=== PATIENT | female | born 1995 | race Caucasian/White ===

== ENCOUNTER 2024-03-07 19:13 | Emergency (ER) | payer BC, SELFPAY ==
[2024-03-07] MEDS ORDERED: ONDANSETRON 4 MG/2 ML VIAL ONE (20:11)
[2024-03-07] MEDS ORDERED: NA CHLORIDE 0.9% 1,000 ML ONE (20:12)
[2024-03-07] MEDS ORDERED: FAMOTIDINE 20 MG/2 ML VIAL IV ONE (20:12)
[2024-03-07 20:48] LABS: Sqamous Epithelial <5 /HPF (None Seen); Urine Bacteria None Seen /HPF (<20); Urine Bilirubin NEGATIVE (Negative); Urine Blood 1+ (Negative); Urine Clarity Turbid (Clear); Urine Color Yellow (Yellow); Urine Crystals Unidentified Few /HPF (None Seen); Urine Culture Reflex Order NOT NEEDED; Urine Glucose NEGATIVE (Negative); Urine Ketones NEGATIVE (Negative); Urine Microscopic Reflex YN ORDER UMIC; Urine Mucus 4+ /HPF (None Seen); Urine Nitrite NEGATIVE (Negative); Urine Protein NEGATIVE (Negative); Urine Urobilinogen Normal (Normal); Urine WBC <5 /HPF (<5); Urine pH 6.5 (5.0-7.0)
[2024-03-07 21:03] LABS: Albumin 3.6 g/dL (3.4-5.0); Anion Gap 7.8 mEq/L (5.0-15.0); Bilirubin Total 0.3 mg/dL (0.2-1.0); Globulin 3.6 g/dL (2.3-3.5); Protein, Total 7.2 g/dL (6.4-8.2)
[2024-03-07 21:04] LABS: Potassium 3.8 mEq/L (3.5-5.1)
[2024-03-07 21:05] LABS: Absolute Basophils 0.1 K/uL (0-0.5); Absolute Eosinophils 0.2 K/uL (0-0.5); Absolute Lymphocytes (CBC) 2.6 K/uL (0.7-4.9); Absolute Monocytes 0.4 K/uL (0.1-1.3); Absolute Neutrophil 3.2 K/uL (1.8-8.0); Basophils % 1.9 % (0-1.3); Eosinophils % 2.6 % (0-4.4); Hematocrit 34.5 % (36.0-45.0); Hemoglobin 11.4 g/dL (12.0-15.0); Lymphocytes % 40.2 % (15.3-44.8); MCH 25.5 pg (27.0-35.0); MCV 77.1 fL (80-100); MPV 9.3 fL (7.6-11.3); Monocytes % 6.3 % (3.3-12.3); Nucleated Red Blood Cells % 0.1 % (0-0); Platelets 196 thou/uL (152-406); RBC Red Blood Cell Count 4.48 M/uL (3.86-4.86); Red Cell Distribution Width 18.6 % (12.1-15.2)
--- NOTE | 2024-03-07 21:42 | EDPHYS ---
Physician Documentation [facility] Name: Santa Guerin Age: 28 yrs Sex: Female : 1995 Arrival Date: 03/07/2024 Time: 19:13 Bed 2 Private MD: ED Physician Simin Wynn HPI: 03/07 21:40 This 28 yrs old Female presents to ER via Ambulatory with complaints of Vomiting. kb 21:40 Patient is a 28-year-old female who presents for vomiting that started 2 months ago but kb is worse in the mornings and at night. Reports diarrhea over the last 2 days. Denies fever, abdominal pain. No aggravating or alleviating factors.. 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 - Infectious Disease History:: Denies. - Social history:: Smoking status: Reported history of juuling and/or vaping. Patient uses THC A. ROS: 21:38 Constitutional: As per HPI kb Exam: 21:38 Constitutional: This is a well developed, well nourished patient who is awake, alert, kb and in no acute distress. Head/Face: Normocephalic, atraumatic. ENT: Moist Mucous membranes Cardiovascular: Regular rate Respiratory: Respirations even and unlabored. No increased work of breathing. Talking in full sentences Abdomen/GI: Soft, non-tender. No distention Skin: Warm, dry with normal turgor. Normal color. MS/ Extremity: Pulses equal, no cyanosis. Neurovascular intact. Full, normal range of motion. Neuro: Awake and alert, GCS 15, oriented to person, place, time, and situation. Vital Signs: 19:47 BP 115 / 77; Pulse 63; Resp 17; Temp 98.7; Pulse Ox 99% on R/A; MAP 88 mmHg; Weight tm6 61.23 kg; Height 5 ft. 1 in. ; Pain 0/10; 20:30 BP 112 / 74; Pulse 65; Resp 16; Pulse Ox 100% ; dd2 21:40 BP 114 / 76; Pulse 68; Resp 15; Temp 98.4; Pulse Ox 100% ; dd2 19:47 Body Mass Index 25.51 (61.23 kg, 154.94 cm) tm6 19:47 Pain Scale: Adult tm6 MDM: 19:17 Medical Screening Exam initiated kb 21:39 Differential diagnosis: Nonspecific abd pain, gastritis, GERD. Data reviewed: vital kb signs, nurses notes. Test considered but Not performed: CT: ct considered but pt is nontoxic in appearance, afebrile, abd nontender, labs reassuring. Pt educated to follow up with GI for continued symptoms and further evaluation. . Historians other than the Patient: Spouse/Significant Other: . 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 03/07 19:46 Order name: CBC with Diff; Complete Time: 21:08 kb 03/07 19:46 Order name: CMP; Complete Time: 21:04 kb 03/07 19:46 Order name: Lipase; Complete Time: 21:04 kb 03/07 19:46 Order name: Test, Urine; Complete Time: 20:53 kb 03/07 19:46 Order name: Urinalysis w/ reflexes; Complete Time: 20:53 kb 03/07 19:46 Order name: IV Saline Lock; Complete Time: 20:53 kb 03/07 19:46 Order name: Labs collected and sent; Complete Time: 20:53 kb 03/07 21:09 Order name: PO challenge; Complete Time: 21:13 kb Administered Medications: 20:42 Drug: Ondansetron IVP 4 mg IVP once; over 2 minutes Route: IVP; Site: left forearm; ha1 20:57 Follow up: Response: No adverse reaction dd2 20:45 Drug: NS 0.9% IV 1000 ml IV at 1 bolus Per protocol; to be given as a bolus over 60 ha1 minutes Route: IV; Rate: 1 bolus; Site: left forearm; 21:00 Follow up: Response: No adverse reaction dd2 21:45 Follow up: IV Status: Completed infusion; IV Intake: 1000ml dd2 20:53 Drug: Famotidine IVP 20 mg IVP once; dilute with 10 mL 0.9% NaCl; give over 2 minutes ha1 Route: IVP; Site: right antecubital; 21:08 Follow up: Response: No adverse reaction dd2 Disposition Summary: 03/07/24 21:41 Discharge Ordered Notes: Location: Home kb Condition: Stable kb Diagnosis - Nausea with vomiting, unspecified kb Followup: kb - With: Emergency Department - When: As needed - Reason: Worsening of condition Followup: kb - With: Private Physician - When: 2 - 3 days - Reason: Recheck today's complaints, Continuance of care, Re-evaluation by your physician Discharge Instructions: - Discharge Summary Sheet kb - Nausea and Vomiting, Adult, [id number] kb Forms: - Medication Reconciliation Form kb - Antibiotic Education kb - Prescription Opioid Use kb - Patient Portal Instructions kb - Leadership Thank You Letter kb Prescriptions: - Protonix 40 mg Oral Tablet - take 1 tablet ORAL route once daily; 30 tablet; Refills: 0, Product Selection kb Permitted - Zofran 4 mg Oral tablet - take 1 tablet ORAL route every 6 hours As needed; 12 tablet; Refills: 0, kb Product Selection Permitted Signatures: Dispatcher [employer] Lotus Cheney, LEONID BEAULIEUP-Zulema Souza RN RN ha1 Navarro Gary RN RN tm6 JUAN F MARIE RN dd2
--- NOTE | 2024-03-07 21:42 | ER ---
[facility] Age: 28 yrs Sex: Female : 1995 Arrival Date: 03/07/2024 Time: 19:13 Bed 2 Private MD: Diagnosis: Nausea with vomiting, unspecified Presentation: 03/07 19:49 Chief complaint: Patient states: vomiting x2 months, worse in the mornings and tm6 evenings. Diarrhea x2 days. Coronavirus screen: Client denies travel out of the [place] in the last 14 days. Ebola Screen: Patient negative for fever greater than or equal to 101.5 degrees Fahrenheit, and additional compatible Ebola Virus Disease symptoms Patient denies exposure to infectious person. Patient denies travel to an Ebola-affected area in the 21 days before illness onset. No symptoms or risks identified at this time. Initial Sepsis Screen: Does the patient meet any 2 criteria? No. Patient's initial sepsis screen is negative. Does the patient have a suspected source of infection? No. Patient's initial sepsis screen is negative. Risk Assessment: Do you want to hurt yourself or someone else? Patient reports no desire to harm self or others. Onset of symptoms was January 13, 2024. 19:49 Method Of Arrival: Ambulatory tm6 19:49 Acuity: LEO 3 tm6 Triage Assessment: 19:49 General: Appears in no apparent distress. Behavior is calm, cooperative. Pain: Denies tm6 pain. EENT: No signs and/or symptoms were reported regarding the EENT system. Neuro: Level of Consciousness is awake, alert, obeys commands, Oriented to person, place, time, situation. Cardiovascular: Patient's skin is warm and dry. Respiratory: Airway is patent Respiratory effort is even, unlabored, Respiratory pattern is regular, symmetrical. GI: Abdomen is flat, non-distended, Reports diarrhea, nausea, vomiting. : No signs and/or symptoms were reported regarding the genitourinary system. Derm: No signs and/or symptoms reported regarding the dermatologic system. Musculoskeletal: No signs and/or symptoms reported regarding the musculoskeletal system. 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 - Infectious Disease History:: Denies. - Social history:: Smoking status: Reported history of juuling and/or vaping. Patient uses THC A. Screenin:14 [facility] ED Fall Risk Assessment (Adult) History of falling in the last 3 months, ha1 including since admission No falls in past 3 months (0 pts) Confusion or Disorientation No (0 pts) Intoxicated or Sedated No (0 pts) Impaired Gait No (0 pts) Mobility Assist Device Used No (0 pt) Altered Elimination No (0 pt) Score/Fall Risk Level 0 - 2 = Low Risk Oriented to surroundings, Maintained a safe environment, Educated pt \T\ family on fall prevention, incl call for assistance when getting out of bed, Hourly rounding (assess needs \T\ fall precautionary measures) done. Abuse screen: Denies threats or abuse. Denies injuries from another. Nutritional screening: No deficits noted. Tuberculosis screening: No symptoms or risk factors identified. Assessment: 20:13 General: Appears uncomfortable, Behavior is calm, cooperative. Pain: Complains of pain ha1 in abdomen Pain does not radiate. Pain currently is 5 out of 10 on a pain scale. Quality of pain is described as aching. Neuro: Level of Consciousness is awake, alert, obeys commands, Oriented to person, place, time, situation. Cardiovascular: Capillary refill < 3 seconds Patient's skin is warm and dry. Respiratory: Airway is patent Respiratory effort is even, unlabored, Respiratory pattern is regular, symmetrical. GI: Abdomen is round non-distended, Reports nausea, vomiting. : No signs and/or symptoms were reported regarding the genitourinary system. Derm: Skin is pink, warm \T\ dry. Musculoskeletal: Circulation, motion, and sensation intact. Range of motion: intact in all extremities. 21:15 Reassessment: Patient and/or family updated on plan of care and expected duration. Pain ha1 level reassessed. Patient is alert, oriented x 3, equal unlabored respirations, skin warm/dry/pink. Patient states feeling better. Patient states symptoms have improved. Vital Signs: 19:47 BP 115 / 77; Pulse 63; Resp 17; Temp 98.7; Pulse Ox 99% on R/A; MAP 88 mmHg; Weight tm6 61.23 kg; Height 5 ft. 1 in. ; Pain 0/10; 20:30 BP 112 / 74; Pulse 65; Resp 16; Pulse Ox 100% ; dd2 21:40 BP 114 / 76; Pulse 68; Resp 15; Temp 98.4; Pulse Ox 100% ; dd2 19:47 Body Mass Index 25.51 (61.23 kg, 154.94 cm) tm6 19:47 Pain Scale: Adult tm6 ED Course: 19:15 Patient arrived in ED. al6 19:16 Lotus Mesa [facility]-C [facility]. kb 19:16 Simin Wynn MD is Attending Physician. kb 19:49 Arm band placed on right wrist. tm6 19:50 Triage completed. tm6 19:50 Patient has correct armband on for positive identification. Bed in low position. Call ha1 light in reach. Side rails up X 1. Adult w/ patient. 20:15 Provided Education on: plan of care . ha1 20:30 Inserted saline lock: 20 gauge in left forearm, using aseptic technique. Blood ha1 collected. Flushed with 10 mL NS. 20:34 Test, Urine Sent. vk 20:34 Urinalysis w/ reflexes Sent. vk 20:34 Missed attempt(s): 20 gauge in left forearm. vk 20:53 CBC with Diff Sent. ha1 20:53 CMP Sent. ha1 20:53 Lipase Sent. ha1 21:56 JUAN F MARIE, RN is Primary Nurse. dd2 22:03 No provider procedures requiring assistance completed. IV discontinued, intact, dd2 bleeding controlled, No redness/swelling at site. Pressure dressing applied. Administered Medications: 20:42 Drug: Ondansetron IVP 4 mg IVP once; over 2 minutes Route: IVP; Site: left forearm; ha1 20:57 Follow up: Response: No adverse reaction dd2 20:45 Drug: NS 0.9% IV 1000 ml IV at 1 bolus Per protocol; to be given as a bolus over 60 ha1 minutes Route: IV; Rate: 1 bolus; Site: left forearm; 21:00 Follow up: Response: No adverse reaction dd2 21:45 Follow up: IV Status: Completed infusion; IV Intake: 1000ml dd2 20:53 Drug: Famotidine IVP 20 mg IVP once; dilute with 10 mL 0.9% NaCl; give over 2 minutes ha1 Route: IVP; Site: right antecubital; 21:08 Follow up: Response: No adverse reaction dd2 Medication: 20:15 VIS not applicable for this client. ha1 Intake: 21:45 IV: 1000ml; Total: 1000ml. dd2 Outcome: 21:41 Discharge ordered by MD. rivera 22:03 Discharged to home ambulatory, dd2 22:03 Condition: improved 22:03 Discharge instructions given to patient, family, Instructed on discharge instructions, follow up and referral plans. medication usage, Demonstrated understanding of instructions, follow-up care, medications, Prescriptions given X 2, 22:04 Patient left the ED. dd2 Signatures: Lotus Mesa, JOSEC PINA-Zulema Souza, RN RN ha1 Navarro Gary RN RN tm6 Estrella Blue DIANA, RN RN dd2 Trinity Oro6
[2024-03-07 22:43] VITALS: O2SAT 100
[2024-03-07 22:45] VITALS: BP 114/76; TEMP 98.4
== END 2024-03-07 22:04 | disposition home or self-care (01) ==
LOC: ER 19:13
DX: R11.2 Nausea with vomiting, unspecified (principal)
CPT/HCPCS: 85025; 81001; 36415; 81025; 83690; 80053; 99284; J2405; J7030

== ENCOUNTER 2024-06-22 21:39 | Emergency (ER) | payer BC ==
--- OUTSIDE RECORDS SUMMARY | 2024-06-22 21:42 | XMS REPORT | Continuity of Care Document ---
Author Name Unknown Address [address] [place] [address] [facility] Address [address] [place] [address] Care Team Providers Care Newspaper Inserter Name Role Phone Elsa Chavis Primary Care Physician Medications Ordered Medication Name Filled Medication Name Start Date Stop Date Current Medication? Ordering Clinician Indication Dosage Frequency Signature (SIG) Comments Components Source TAKE 1 TABLET BY MOUTH ONCE DAILY IN THE MORNING 2022-02 0-05 00:00: 00 Yes Edouard Valdivia TAKE 1 TABLET BY MOUTH ONCE DAILY IN THE MORNING FOR 7 DAYS, IF NO SIDE EFFECTS INCREASE TO 2 TABLETS ONCE DAILY IN THE MORNING 6-29 00:00: 00 Yes Edouard Valdivia BUPROPION HCL 75 MG TABS 5-31 00:00: 00 Yes 75 Edouard Valdivia APPLY THIN FILM TO AFFECTED AREA 3 TIMES DAILY FOR 7 TO 10 DAYS. 4-12 00:00: 00 05-29 00:00 :00 No 2 Edouard Valdivia Vital Signs Vital Name Observation Time Observation Value Comments Louise vasques Weight Measured 2024-06-08 13:47:00 145.20 pounds Edouard Valdivia Height Measured 2024-06-08 13:47:00 62.00 inches Edouard Jarrett Valdivia Body Temperature 2024-06-08 13:47:00 98.30 degrees Edouard Jarrett Valdivia Heart Rate 2024-06-08 13:47:00 57.00 /min Maryam nacho Valdivia Respiratory Rate 2024-06-08 13:47:00 18.00 /min Edouard Jarrett Valdivia BP Systolic 2024-06-08 13:47:00 107 mm[Hg] Step hen F Skip BP Diastolic 2024-06-08 13:47:00 74 mm[Hg] Xander phen F Skip BP Systolic 2022-06-09 16:31:00 122 mm[Hg] Step hen F Skip BP Diastolic 2022-06-09 16:31:00 71 mm[Hg] Xander phen F Skip Weight Measured 2022-06-09 16:31:00 149.60 pounds Edouard F Skip Height Measured 2022-06-09 16:31:00 62.00 inches Edouard F Skip Body Temperature 2022-06-09 16:31:00 98.30 degrees Edouard F Skip Heart Rate 2022-06-09 16:31:00 81.00 /min Maryam en F Skip Respiratory Rate 2022-06-09 16:31:00 18.00 /min Edouard F Skip BP Systolic 2022-06-09 16:21:00 Step hen F Skip BP Diastolic 2022-06-09 16:21:00 Xander phen F Skip Weight Measured 2022-06-09 16:21:00 Edouard F Skip Height Measured 2022-06-09 16:21:00 Edouard F Skip Body Temperature 2022-06-09 16:21:00 Edouard F Skip Heart Rate 2022-06-09 16:21:00 Maryam en F Skip Respiratory Rate 2022-06-09 16:21:00 Edouard F Skip BP Systolic 2022-02-01 13:58:00 110 mm[Hg] Step hen F Skip BP Diastolic 2022-02-01 13:58:00 81 mm[Hg] Xander phen F Skip Weight Measured 2022-02-01 13:58:00 157.00 pounds Edouard F Skip Height Measured 2022-02-01 13:58:00 62.00 inches Edouard F Skip Body Temperature 2022-02-01 13:58:00 98.30 degrees Edouard F Skip Heart Rate 2022-02-01 13:58:00 85.00 /min Maryam en F Skip Respiratory Rate 2022-02-01 13:58:00 18.00 /min Edouard F Skip BP Systolic 2022-01-25 13:37:00 103 mm[Hg] Step hen F Skip BP Diastolic 2022-01-25 13:37:00 70 mm[Hg] Xander phen F Skip Weight Measured 2022-01-25 13:37:00 153.20 pounds Edouard Valdivia Height Measured 2022-01-25 13:37:00 62.00 inches Edouard Valdivia Body Temperature 2022-01-25 13:37:00 98.30 degrees Edouard Valdivia Heart Rate 2022-01-25 13:37:00 86.00 /min Maryam en F Skip Respiratory Rate 2022-01-25 13:37:00 18.00 /min Edouard Valdivia BP Systolic 2022-01-11 10:38:00 117 mm[Hg] Step hen F Skip BP Diastolic 2022-01-11 10:38:00 81 mm[Hg] Xander phen F Skip Weight Measured 2022-01-11 10:38:00 152.40 pounds Edouard Valdivia Height Measured 2022-01-11 10:38:00 62.00 inches Edouard Valdivia Body Temperature 2022-01-11 10:38:00 98.10 degrees Edouard Valdivia Heart Rate 2022-01-11 10:38:00 90.00 /min Maryam en F Skip Respiratory Rate 2022-01-11 10:38:00 18.00 /min Edouard Valdivia Encounters Start Date/Time End Date/Time Encounter Type Admission Type Attending [facility] Care Department Encounter ID Source 2024-06-08 13:40:31 2024-06-08 13:40:31 Outpatient [facility] [id number] Edouard Valdivia 2024-06-08 00:00:00 2024-06-08 00:00:00 Outpatient Visit [facility] [id number] Edouard Valdivia 2024-06-08 00:00:00 2024-06-08 00:00:00 Outpatient Visit [facility] [id number] Edouard Valdivia 2022-06-15 11:19:31 2022-06-15 11:19:31 Outpatient [facility] [id number] Edouard Valdivia 2022-06-09 16:16:28 2022-06-09 16:16:28 Outpatient [facility] [id number] Edouard Valdivia 2022-01-25 14:31:27 2022-01-25 14:31:27 Outpatient [facility] [id number] Edouard Valdivia 2022-01-11 10:28:21 2022-01-11 10:28:21 Outpatient [facility] [id number] Edouard Valdivia Notes Date/Time Note Provider Source Edouard Valdivia [facility]
[2024-06-22] MEDS ORDERED: NA CHLORIDE 0.9% 1,000 ML ONE (22:22)
[2024-06-22] MEDS ORDERED: DIPHENHYDRAMINE 50 MG/ML VIAL ONE (22:22)
[2024-06-22 22:39] LABS: Specific Gravity 1.006 (1.005-1.030); Urine Bilirubin NEGATIVE (Negative); Urine Blood Negative (Negative); Urine Clarity Clear (Clear); Urine Color Colorless (Yellow); Urine Glucose NEGATIVE (Negative); Urine Ketones NEGATIVE (Negative); Urine Microscopic Reflex YN NO UMIC; Urine Nitrite NEGATIVE (Negative); Urine Protein NEGATIVE (Negative); Urine Urobilinogen Normal (Normal)
[2024-06-22 22:50] LABS: Absolute Basophils 0.1 K/uL (0-0.5); Absolute Eosinophils 0.1 K/uL (0-0.5); Absolute Lymphocytes (CBC) 2.1 K/uL (0.7-4.9); Absolute Monocytes 0.7 K/uL (0.1-1.3); Absolute Neutrophil 6.2 K/uL (1.8-8.0); Basophils % 0.6 % (0-1.3); Eosinophils % 0.8 % (0-4.4); Hematocrit 34.3 % (36.0-45.0); Hemoglobin 11.9 g/dL (12.0-15.0); Lymphocytes % 23.2 % (15.3-44.8); MCH 26.6 pg (27.0-35.0); MCHC 34.7 g/dL (32.0-36.0); MCV 76.5 fL (80-100); MPV 9.4 fL (7.6-11.3); Monocytes % 7.9 % (3.3-12.3); Neutrophils % 67.5 % (41.7-73.7); Platelets 178 thou/uL (152-406); RBC Red Blood Cell Count 4.48 M/uL (3.86-4.86); Red Cell Distribution Width 18.5 % (12.1-15.2)
[2024-06-22 22:59] LABS: ALT/SGPT 29 U/L (13-56); Albumin 3.9 g/dL (3.4-5.0); Albumin/Globulin Ratio 1.1 (1.1-1.8); Alkaline Phosphatase 45 U/L (45-117); Anion Gap 9.5 mEq/L (5.0-15.0); BUN Blood Urea Nitrogen 8 mg/dL (7-18); Bicarbonate 22 mEq/L (21-32); Bilirubin Total 0.4 mg/dL (0.2-1.0); Globulin 3.7 g/dL (2.3-3.5); Glomerular Filtration Rate 120 ml/min (=/>90); Glucose Level 98 mg/dL (74-106); Potassium 3.5 mEq/L (3.5-5.1); Protein, Total 7.6 g/dL (6.4-8.2); Sodium Level 135 mEq/L (136-145)
[2024-06-22 23:00] LABS: AST/SGOT < 10 U/L (15-37)
[2024-06-22 23:10] LABS: HCG, Quantitative 52202 mIU/mL (1-3)
--- NOTE | 2024-06-22 23:54 | RAD REPORT ---
EXAMINATION: US Transvaginal OB COMPARISON: None. HISTORY: [facility] MAIN ABD CRAMPING, Bed Name: IW1 TECHNIQUE: Real-time ultrasound was performed through the pelvis. A transvaginal scan was performed t o better visualize the intrauterine contents and adnexa. FINDINGS: There is a single living intrauterine . Small crescentic subchorionic hemorrhage just above the decidua, measuring 7 x 5 x 6 mm. Both ovaries are visualized and appear unremarkable. There is no free fluid in the cul-de-sac. Measurements and Calculations: Crouse rump length 7.4 millimeter, consistent with a sonographic age of 6 weeks, 4 days. The patient' s LMP date is not stated. heart rate: 122 BPM IMPRESSION: Single living intrauterine , with a composite sonographic age of 6 weeks, 4 days based on cr own-rump length. Incidentally noted small subchorionic hemorrhage measuring up to 7 mm. Close clinical follow-up, and consideration of short-term sonographic follow-up in 7-10 days are recommended.
--- NOTE | 2024-06-23 00:02 | EDPHYS ---
Physician Documentation [facility] Name: Santa Guerin Age: 29 yrs Sex: Female : 1995 Arrival Date: 06/22/2024 Time: 21:39 Bed 12 Private MD: ED Physician Mauricio Light HPI: 06/23 01:41 This 29 yrs old Female presents to ER via Ambulatory with complaints of 6 dr5 weeks , dehydration. 01:41 Onset: The symptoms/episode began/occurred acutely. Patient is a 29-year-old female is dr5 approximately 6 weeks coming in with nausea and vomiting this been going on all day. Patient reports that she is able to keep food down for a while, but then throws up later. Patient has Zofran that OB prescribed that is not helping.. 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 - Infectious Disease History:: Denies. - Social history:: Smoking status: Reported history of juuling and/or vaping. ROS: 06/23 01:41 Constitutional: as per hpi dr5 Exam: 01:41 Constitutional: This is a well developed, well nourished patient who is awake, alert, dr5 and in no acute distress. Head/Face: Normocephalic, atraumatic. Eyes: Pupils equal round and reactive to light, extra-ocular motions intact. Lids and lashes normal. Conjunctiva and sclera are non-icteric and not injected. Cornea within normal limits. Periorbital areas with no swelling, redness, or edema. Neck: Trachea midline, no thyromegaly or masses palpated, and no cervical lymphadenopathy. Supple, full range of motion without nuchal rigidity, or vertebral point tenderness. No Meningismus. Chest/axilla: Normal chest wall appearance and motion. Nontender with no deformity. No lesions are appreciated. Cardiovascular: Regular rate and rhythm with a normal S1 and S2. Normal PMI, no JVD. No pulse deficits. Respiratory: Lungs have equal breath sounds bilaterally, clear to auscultation. No rales, rhonchi or wheezes noted. No increased work of breathing, no retractions or nasal flaring. Back: No spinal tenderness. No costovertebral tenderness. Full range of motion. Skin: Warm, dry with normal turgor. Normal color with no rashes, no lesions, and no evidence of cellulitis. MS/ Extremity: Pulses equal, no cyanosis. Neurovascular intact. Full, normal range of motion. Neuro: Awake and alert, GCS 15, oriented to person, place, time, and situation. Cranial nerves II-XII grossly intact. Motor strength 5/5 in all extremities. Sensory grossly intact. Cerebellar exam normal. Normal gait. Vital Signs: 06/22 22:14 BP 116 / 77; Pulse 61; Resp 16; Temp 98.4; Pulse Ox 100% on R/A; Weight 65.32 kg; dd2 Height 5 ft. 1 in. ; 06/23 00:11 BP 113 / 72; Pulse 64; Resp 16; Temp 98.2; Pulse Ox 100% on R/A; dd2 06/22 22:14 Body Mass Index 27.21 (65.32 kg, 154.94 cm) dd2 [place] Coma Score: 06/22 22:45 Eye Response: spontaneous(4). Motor Response: obeys commands(6). Verbal Response: dd2 oriented(5). Total: 15. MDM: 22:04 Medical Screening Exam initiated dr5 06/23 01:41 Differential diagnosis: viral Infection, hyperemesis gravidarum, dehydration, dr5 subchorionic hemorrhage. Data reviewed: vital signs, nurses notes, lab test result(s), radiologic studies, ultrasound. I considered the following discharge prescriptions or medication management in the emergency department Medications were administered in the Emergency Department. See MAR. Historians other than the Patient: Spouse/Significant Other: Significant other. Care significantly affected by the following Social Determinants of Health: Poor access to healthcare and/or lack of insurance, Poor access to transportation, Problems related to employment. Counseling: I had a detailed discussion with the patient and/or guardian regarding the historical points, exam findings, and any diagnostic results supporting the discharge/admit diagnosis, the presence of at least one elevated blood pressure reading (>120/80) during this emergency department visit, lab results, radiology results, the need for outpatient follow up, for definitive care, a family practitioner, an OB/Gyne specialist, to return to the emergency department if symptoms worsen or persist or if there are any questions or concerns that arise at home. Medication response: Benadryl. Response to treatment: the patient's symptoms have resolved after treatment. ED course: Patient was given IV as well as normal saline for hydration. All labs and ultrasound discussed with patient and . P.o. challenge passed and patient is feeling much better. Recommended patient keep appoint with OB this next week. Discussed subchorionic hemorrhage with close follow-up.. 06/22 21:43 Order name: CBC with Diff; Complete Time: 23:00 dr5 06/22 21:43 Order name: CMP; Complete Time: 23:19 [facility] 06/22 21:43 Order name: Urinalysis w/ reflexes; Complete Time: 22:42 [facility] 06/22 21:43 Order name: HCG-Quantitative; Complete Time: 23:19 [facility] 06/22 22:20 Order name: US Transvaginal Ob; Complete Time: 23:56 dd2 Administered Medications: 06/22 22:32 Drug: NS 0.9% IV 1000 ml IV at 1000 ml once; to be given as a bolus over 60 minutes dd2 Route: IV; Rate: 1000 ml; Site: left forearm; 23:30 Follow up: IV Status: Completed infusion; IV Intake: 1000ml dd2 22:32 Drug: diphenhydrAMINE IVP 12.5 mg IVP once Route: IVP; Site: left forearm; dd2 22:47 Follow up: Response: No adverse reaction dd2 Disposition: 06/23 02:36 I was immediately available on-site in the Emergency Department for consultation in the ms3 care of the patient. Disposition Summary: 06/23/24 00:01 Discharge Ordered Notes: Location: Home dr5 Condition: Stable dr5 Diagnosis - Nausea with vomiting, unspecified dr5 Followup: dr5 - With: Emergency Department - When: As needed - Reason: Worsening of condition Followup: dr5 - With: Private Physician - When: 7 - 10 days - Reason: Recheck today's complaints, Continuance of care, Re-evaluation by your physician Discharge Instructions: - Discharge Summary Sheet dr5 - Nausea and Vomiting, Adult dr5 - Subchorionic Hematoma dr5 Forms: - Medication Reconciliation Form dr5 - Patient Portal Instructions dr5 - Leadership Thank You Letter dr5 Signatures: Dispatcher [employer] EDMauricio Mcfarland, DO ms3 JUAN F MARIE, RN RN dd2 Satnam Acosta, PAINT ROLLER ASSEMBLER-C PAINT ROLLER ASSEMBLER-Cdr5 Corrections: (The following items were deleted from the chart) 06/22 21:43 21:43 CBC+H.LAB.BRZ ordered. EDMS EDMS : 21:43 COMPREHENSIVE METABOLIC PANEL+C.LAB.BRZ ordered. EDMS EDMS : 21:43 Urinalysis+U.LAB.BRZ ordered. EDMS EDMS : 21:43 QUANTITATIVE HCG+C.LAB.BRZ ordered. EDMS EDMS 22:21 22:21 Transvaginal Ob+US.RAD.BRZ ordered. EDMS EDMS
--- NOTE | 2024-06-23 00:02 | ER ---
[facility] Age: 29 yrs Sex: Female : 1995 Arrival Date: 06/22/2024 Time: 21:39 Bed 12 Private MD: Diagnosis: Nausea with vomiting, unspecified Presentation: 06/22 22:14 Chief complaint: Patient states: 6 WEEKS WITH N/V. MD RX ZOFRAN BUT UNABLE TO dd2 KEEP ANYTHING IN FOR 2 DAYS. Coronavirus screen: At this time, the client does not indicate any symptoms associated with coronavirus-19. Ebola Screen: No symptoms or risks identified at this time. Initial Sepsis Screen: Does the patient meet any 2 criteria? No. Patient's initial sepsis screen is negative. Does the patient have a suspected source of infection? No. Patient's initial sepsis screen is negative. Risk Assessment: Do you want to hurt yourself or someone else? Patient reports no desire to harm self or others. Onset of symptoms is unknown. 22:14 Method Of Arrival: Ambulatory dd2 22:14 Acuity: LEO 3 dd2 Triage Assessment: 22:17 General: Appears in no apparent distress. Behavior is calm, cooperative, appropriate dd2 for age. Pain: Denies pain. GI: Abdomen is non-distended, Abd is soft and non tender X 4 quads. Reports intolerance of fluids, intolerance of food, nausea, vomiting. 22:25 EENT: No deficits noted. No signs and/or symptoms were reported regarding the EENT dd2 system. Neuro: No deficits noted. Level of Consciousness is awake, alert, obeys commands, Oriented to person, place, time, situation, Appropriate for age. Cardiovascular: No deficits noted. Respiratory: No deficits noted. Airway is patent Respiratory effort is even, unlabored, Respiratory pattern is regular, symmetrical. : No deficits noted. No signs and/or symptoms were reported regarding the genitourinary system. Derm: No deficits noted. No signs and/or symptoms reported regarding the dermatologic system. Musculoskeletal: No deficits noted. No signs and/or symptoms reported regarding the musculoskeletal system. Circulation, motion, and sensation intact. Range of motion: intact in all extremities. 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 - Infectious Disease History:: Denies. - Social history:: Smoking status: Reported history of juuling and/or vaping. Screenin:45 [facility] ED Fall Risk Assessment (Adult) History of falling in the last 3 months, dd2 including since admission No falls in past 3 months (0 pts) Confusion or Disorientation No (0 pts) Intoxicated or Sedated No (0 pts) Impaired Gait No (0 pts) Mobility Assist Device Used No (0 pt) Altered Elimination No (0 pt) Score/Fall Risk Level 0 - 2 = Low Risk Oriented to surroundings, Maintained a safe environment, Educated pt \T\ family on fall prevention, incl call for assistance when getting out of bed, Assessed \T\ reinforced patient's understanding of fall precautions, Hourly rounding (assess needs \T\ fall precautionary measures) done. Abuse screen: Denies threats or abuse. Denies injuries from another. Nutritional screening: No deficits noted. Tuberculosis screening: No symptoms or risk factors identified. Assessment: 22:26 Reassessment: SEE TRIAGE ASSESSMENT FOR FULL ASSESSMENT. dd2 Vital Signs: 22:14 BP 116 / 77; Pulse 61; Resp 16; Temp 98.4; Pulse Ox 100% on R/A; Weight 65.32 kg; dd2 Height 5 ft. 1 in. ; 06/23 00:11 BP 113 / 72; Pulse 64; Resp 16; Temp 98.2; Pulse Ox 100% on R/A; dd2 06/22 22:14 Body Mass Index 27.21 (65.32 kg, 154.94 cm) dd2 [place] Coma Score: 06/22 22:45 Eye Response: spontaneous(4). Motor Response: obeys commands(6). Verbal Response: dd2 oriented(5). Total: 15. ED Course: 21:40 Patient arrived in ED. im 21:42 Satnam Acosta FNP-C is PHCP. dr5 21:42 Mauricio Light DO is Attending Physician. dr5 22:17 Triage completed. dd2 22:17 Arm band placed on left wrist. dd2 22:24 Initial lab(s) drawn, by ED staff, sent to lab. Inserted saline lock: 22 gauge in left dd2 forearm, using aseptic technique. Blood collected. Flushed with 10 mL NS. 22:45 Patient has correct armband on for positive identification. Bed in low position. Call dd2 light in reach. Side rails up X2. Client placed on continuous cardiac and pulse oximetry monitoring. NIBP monitoring applied. Door closed. Noise minimized. Warm blanket given. Pillow given. Verbal reassurance given. 22:45 No provider procedures requiring assistance completed. Urine collected: clean catch dd2 specimen, clear. Patient maintains SpO2 saturation greater than 95% on room air. 23:27 US Transvaginal Ob In Process Unspecified. EDMS 06/23 00:11 Provided Education on: D/C EDUCATION AND F/U INSTRUCTIONS. dd2 00:11 IV discontinued, intact, bleeding controlled, No redness/swelling at site. Pressure dd2 dressing applied. Administered Medications: 06/22 22:32 Drug: NS 0.9% IV 1000 ml IV at 1000 ml once; to be given as a bolus over 60 minutes dd2 Route: IV; Rate: 1000 ml; Site: left forearm; 23:30 Follow up: IV Status: Completed infusion; IV Intake: 1000ml dd2 22:32 Drug: diphenhydrAMINE IVP 12.5 mg IVP once Route: IVP; Site: left forearm; dd2 22:47 Follow up: Response: No adverse reaction dd2 Medication: 22:45 VIS not applicable for this client. dd2 Intake: 23:30 IV: 1000ml; Total: 1000ml. dd2 Outcome: 06/23 00:01 Discharge ordered by . dr5 00:11 Discharged to home ambulatory, dd2 00:11 Condition: stable 00:11 Discharge instructions given to patient, Instructed on discharge instructions, follow up and referral plans. medication usage, Demonstrated understanding of instructions, follow-up care, medications, 00:12 Patient left the ED. dd2 Signatures: Dispatcher [employer] [facility] Liana Servin DIANA, RN RN dd2 Satnam Acosta, PREVENTATIVE MAINTENANCE TECHNICIAN-C PREVENTATIVE MAINTENANCE TECHNICIAN-Cdr5 Corrections: (The following items were deleted from the chart) 06/22 22: 22:17 GI: Abdomen is non-distended, Abd is soft and non tender X 4 quads. Reports dd2 intolerance of fluids, intolerance of food, nausea, vomiting, dd2
[2024-06-23 02:08] VITALS: O2SAT 100
[2024-06-23 02:09] VITALS: BP 113/72; TEMP 98.2
== END 2024-06-23 00:12 | disposition home or self-care (01) ==
LOC: ER 21:39
DX: O21.9 Vomiting of pregnancy, unspecified (principal); Z3A.01 Less than 8 weeks gestation of pregnancy
CPT/HCPCS: 96361; 85025; 36415; 84702; 81003; 80053; 76817; 96374; 99284; J1200; J7030

== ENCOUNTER 2024-07-15 16:27 | Emergency (ER) | payer BC ==
--- OUTSIDE RECORDS SUMMARY | 2024-07-15 16:31 | XMS REPORT | Continuity of Care Document ---
Author Name Unknown Address [address] [facility] [facility] [place] [address] [facility] [place] Address [address] [facility] [place] [address] Care Team Providers Care Caterer Helper Name Role Phone Elsa Chavis Primary Care Physician [facility] Attending Clinician Unavailable Provider, Coco Glass Attending Clinician Unava ilable Payers Payer Name Policy Type Policy Number Effective Date Expirati on Date Source Social History Social Habit Start Date Stop Date Quantity Comments Source Sex Assigned At 1995 00:00:00 1995 00:00:00 [facility] Sm[facility] Status Start Date Stop Date Source Unknown if ever smoked [facility] ([place] Medications Ordered Medication Name Filled Medication Name [...] 2 TABLETS ONCE DAILY IN THE MORNING 08-26 00:00: 00 Yes Edouard Valdivia BUPROPION HCL 75 MG TABS 5-31 00:00: 00 Yes 75 Edouard Valdivia APPLY THIN FILM TO AFFECTED AREA 3 TIMES DAILY FOR 7 TO 10 DAYS. -12 00:00: 00 05-29 00:00 :00 No 2 Edouard Valdivia Vital Signs Vital Name Observation Time Observation Value Comments S layo Weight Measured 2024-06-08 13:47:00 145.20 pounds Edouard F Skip Height Measured 2024-06-08 13:47:00 62.00 inches Edouard F Skip Body Temperature 2024-06-08 13:47:00 98.30 degrees Edouard F Skip Heart Rate 2024-06-08 13:47:00 57.00 /min Maryam en F Skip Respiratory Rate 2024-06-08 13:47:00 18.00 /min Edouard F Skip BP Systolic 2024-06-08 13:47:00 107 mm[Hg] Step [...] Height Measured 2022-02-01 13:58:00 62.00 inches Edouard Valdivia Body Temperature 2022-02-01 13:58:00 98.30 degrees Edouard F Skip Heart Rate 2022-02-01 13:58:00 85.00 /min Maryam en F Skip Respiratory Rate 2022-02-01 13:58:00 18.00 /min Edouard F Skip BP Systolic 2022-01-25 13:37:00 103 mm[Hg] Step hen F Skip BP Diastolic 2022-01-25 13:37:00 70 mm[Hg] Xander phen F Skip Weight Measured 2022-01-25 13:37:00 153.20 pounds Edouard Valdivia Height Measured 2022-01-25 13:37:00 62.00 inches Edouard F Skip Body Temperature 2022-01-25 13:37:00 98.30 degrees Edouard F Skip Heart Rate 2022-01-25 13:37:00 86.00 /min Maryam en F Skip Respiratory Rate 2022-01-25 13:37:00 18.00 /min Edouard F Skip BP Systolic 2022-01-11 10:38:00 117 mm[Hg] Step hen F Skip BP Diastolic 2022-01-11 10:38:00 81 mm[Hg] Xander phen F Skip Weight Measured 2022-01-11 10:38:00 152.40 pounds Edouard Valdivia Height Measured 2022-01-11 10:38:00 62.00 inches Edouard Valdivia Body Temperature 2022-01-11 10:38:00 98.10 degrees Edouard Jarrett Valdivia Heart Rate 2022-01-11 10:38:00 90.00 /min Maryam en F Skip Respiratory Rate 2022-01-11 10:38:00 18.00 /min Edouard Jarrett Valdivia Procedures Procedure Date / Time Performed Performing Clinicia n Source EKG 12 Lead in Emergency Room 2021-05-10 20:25:[address] [facility] ([place]) XR Abdomen 1 View/KUB 2021-05-10 11:57:[address] [facility] ([place]) XR Abdomen 1 View/KUB 2021-05-10 11:57:[address] [facility] Encounters Start Date/Time End Date/Time Encounter Type Admission Type Attending [facility] Care Department Encounter ID Source 2024-06-08 13:40:31 2024-06-08 13:40:31 Outpatient SFA [id number] [id number] Edouard Valdivia 2024-06-08 00:00:00 2024-06-08 00:00:00 Outpatient Visit SFA [id number] Edouard Valdivia 2024-06-08 00:00:00 2024-06-08 00:00:00 Outpatient Visit SFA [id number] Edouard Valdivia 2022-06-15 11:19:31 2022-06-15 11:19:31 Outpatient SFA [id number] [id number] Edouard Valdivia 2022-06-09 16:16:28 2022-06-09 16:16:28 Outpatient SFA [id number] [id number] Edouard Valdivia 2022-01-25 14:31:27 2022-01-25 14:31:27 Outpatient SFA [id number] [id number] Edouard Valdivia 2022-01-11 10:28:21 2022-01-11 10:28:21 Outpatient SFA SFA [id number] Edouard Valdivia 2021-05-10 20:00:00 2021-05-11 09:50:00 Emergency ER [facility] [id number] [facility] 2021-05-10 20:00:00 2021-05-11 09:50:00 Departed Emergency [id number] [facility] [id number] [facility] ([place] 2021-05-10 11:19:00 2021-05-10 14:42:00 Outpatient [facility] [id number] [facility] ([place] 2021-05-10 11:19:00 2021-05-10 14:42:00 Departed Emergency [id number] [facility] [id number] [facility] ([place] Results Test Description Test Time Test Comments Results Result Co mments Source [id number] 21:41:00* Test Item Value Reference Range Interpretation Comme nts Chemistry (test code = NA-T) 137 mmol/L 136-145 N Chemistry (test code = K-T) 4.3 mmol/L 3.5-5.1 N Chemistry (test code = CL) 103 mmol/L 98-107 N Chemistry (test code = CO2) 26 mmol/L 22-29 N Chemistry (test code = ANGP) 12 mmol/L 10-20 N Chemistry (test code = BUN) 7 mg/dL 7.0-18.7 N Chemistry (test code = CREATT) 0.70 mg/dL 0.6-1.1 N Chemistry (test code = EGFRMDRD) Greater than 90 Reference Range for Estimated GFR: Greater than 90 mL/min/1.73 m2NOTE:The MDRD equation has not been validated for use with theelderly (over 70 years of age), women, patientswith serious comorbid condition or persons with extremes ofbody size, muscle mass, or nutritional status. Chemistry (test code = GLU-T) 92 mg/dL 70-105 N Chemistry (test code = CA) 9.5 mg/dL 7.8-10.44 N Chemistry (test code = TBILI-T) 0.2 mg/dL 0.2-1.2 N Chemistry (test code = TP) 7.8 g/dL 6.0-8.3 N Chemistry (test code = ALB) 4.3 g/dL 3.5-5.0 N Chemistry (test code = GLOB) 3.5 g/dL 2.4-3.5 N Chemistry (test code = AG) 1.2 g/dL 1.2-2.2 N Chemistry (test code = ALP) 49 U/L 40-110 N Chemistry (test code = AST) 21 U/L 5-34 N Chemistry (test code = ALT) 24 U/L 8-55 N [id number] 21:41:00* Test Item Value Reference Range Interpretation [facility] Chemistry (test code = ETOH) Less than 10 mg/dL Less than 10 The pharmacological response to blood alcohol levels mayvary from individual to individual. Negative: Less than 10 mg/dL Toxic: 50 - 100 mg/dL Depression of TRANSCRIBING OPERATOR HEAD: Greater than 100 mg/dL Fatalities reported: Greater than 400 mg/dL [id number] 21:39:00* Test Item Value Reference Range Interpretation [facility] Chemistry (test code = ACET-T) Less than 6.0 mcg/mL 10.0-30.0 L Therapeutic Range: 1 0.0 - 30.0 ug/mLToxic Range: Possible toxicity: 150 - 200 ug/mL Probable toxicity: Greater than 200 ug/mL*IMPORTANT TESTING INFORMATION* The half-life of NAC is 2 hours. The total NAC clearanceis 5.6 hours for adults and 11 hours for Newborns. Testing acetaminophen levels prior to a reasonable timeframe for clearance can cause falsely decreasedacetaminophen levels. Chemistry (test code = ETOH) Less than 10 mg/dL Less than 10 The pharmacological response to blood alcohol levels mayvary from individual to individual. Negative: Less than 10 mg/dL Toxic: 50 - 100 mg/dL Depression of TRANSCRIBING OPERATOR HEAD: Greater than 100 mg/dL Fatalities reported: Greater than 400 mg/dL Chemistry (test code = SALCY) Less than 8.0 mg/dL 15.0-30.0 L [id number] 21:30:00* Test Item Value Reference Range Interpretation [facility] Toxicology (test code = KARMEN) Detected NotDetected A Toxicology (test code = PCP) Not Detected NotDetected Toxicology (test code = COCN) Not Detected NotDetected Toxicology (test code = METHAMPU) Not Detected NotDetected Toxicology (test code = OPIA) Not Detected NotDetected Toxicology (test code = AMPHU) Not Detected NotDetected Toxicology (test code = VAL) Not Detected NotDetected Toxicology (test code = TRICY) Not Detected NotDetected Toxicology (test code = MTD) Not Detected NotDetected Toxicology (test code = BERNICE) Not Detected NotDetected Toxicology (test code = OXYCOD) Not Detected NotDetected Toxicology (test code = PPX) Not Detected NotDetected Toxicology (test code = MTCUTOFF) See_Comment The [employer] Profile-V Panel for Qualitative Drugs ofAbuse assays are for presumptive screening testing only.The drug class and detection limits are as follows:Drug Class Detection LimitAmphetamine 500 ng/mL*Barbiturates 200 ng/mLBenzodiazepines 150 ng/mL*Cocaine 150 ng/mL*Methamphetamine 500 ng/mL*Methadone 200 ng/mL*Opiates 100 ng/mL*Oxycodone 100 ng/mLPCP 25 ng/mLPropoxyphene 300 ng/mLTricyclic Antidepressants 300 ng/mLCannabinoids (THC) 50 ng/mLTests which yield a presumptive positive result must betested using a more specific alternate chemical method inorder to obtain a confirmed analytical result. Additionalconfirmation and identification may be ordered on a routinebasis, if desired. Presumptive positive urines are held fortwo weeks. [Automated message] The system which generated this result transmitted reference range: . The reference range was not used to interpret this result as normal/abnormal. Urine Source: Urine Clean [id number] 21:21:00* Test Item Value Reference Range Interpretation Comme nts Urinalysis (test code = UACLR) Light-Yellow Yellow Urinalysis (test code = UACLY) Clear Clear Urinalysis (test code = SPGR) 1.016 1.002-1.036 N Urinalysis (test code = MAKENNA) 7.5 5.0-9.0 N Urinalysis (test code = UALEU) Negative Mariajose/uL Negative Urinalysis (test code = UANIT) Negative Negative Urinalysis (test code = PROUADIP) Negative mg/dL Neg-Trace Urinalysis (test code = GLUCU) Normal mg/dL Negative Urinalysis (test code = KETU) Negative mg/dL Negative Urinalysis (test code = UAUROB) Normal mg/dL Less than 2 Urinalysis (test code = UABIL) Negative Negative Urinalysis (test code = UABLD) Negative Negative Urine Source: Urine Clean [id number] 21:21:00* Test Item Value Reference Range Interpretation Comme nts Urinalysis (test code = BHCGUT) Negative Negative Method of sensit ivity- INDETERMINANT: results should be repeated after 48-72 hrs POSITIVE: results may be detected as early as 1 day after the first missed period A dilute urine specimen may not contain representativelevels of hCG.If is still suspected, a first morning urinespecimen OR a random blood specimen should be obtainedfrom the patient 48-72 hours later and re-tested. Urinalysis (test code = PREGUSG) 1.016 1.002-1.036 N [id number] 21:18:00* Test Item Value Reference Range Interpretation Comme nts Hematology (test code = WBCT) 8.4 thou/uL 4.8-10.8 N Hematology (test code = RBCT) 4.81 mill/uL 4.20-5.40 N Hematology (test code = HGBT) 12.5 g/dL 12.0-16.0 N Hematology (test code = HCTT) 39.5 % 36.0-47.0 N Hematology (test code = MCV) 82.2 fL 78.0-98.0 N Hematology (test code = MCH) 26.1 pg 27.0-31.0 L Hematology (test code = MCHC) 31.8 g/dL 32.0-36.0 L Hematology (test code = RDW) 14.8 % 11.5-14.5 H Hematology (test code = PLTT) 263 thou/uL 130-400 N Hematology (test code = MPV) 8.5 fL 7.4-10.4 N Hematology (test code = %NEUT) 56.8 % 42.0-75.0 N Hematology (test code = %LYMPH) 34.8 % 21.0-51.0 N Hematology (test code = %MONO) 6.3 % 0.0-10.0 N Hematology (test code = %EOS) 1.2 % 0.0-10.0 N Hematology (test code = %BASO) 0.8 % 0.0-1.0 N Hematology (test code = NEUT#) 4.8 thou/uL 1.40-6.50 N Hematology (test code = LYMPH#) 2.9 thou/uL 1.20-3.40 N Hematology (test code = MONO#) 0.5 thou/uL 0.11-0.59 N Hematology (test code = EOS#) 0.1 thou/uL 0.0-0.7 N Hematology (test code = BASO#) 0.1 thou/uL 0.0-0.2 N Serum or plasma protein measurement (mass/volume)2021-05-10 20:38:00* Test Item Value Reference Range Interpretation Comme [facility] Serum Total Protein (test co de = 2885-2) 7.8 g/dL 6.0-8.3 [facility])Serum or plasma albumin measurement by bromocresol green (BCG) dye binding method ([id number] 20:38:00* Test Item Value Reference Range Interpretation Comme [facility] Albumin (test code = 37605-8) 4.3 g/dL 3.5-5.0 [facility])Globulin [Mass/volume] in Serum by calculation 2021-05-10 20:38:00* Test Item Value Reference Range Interpretation Comme [facility] Globulin (test code = 30999-0) 3.5 g/dL 2.4-3.5 [facility])Albumin/Globulin [Mass Ratio] in Serum or [id number] 20:38:00* Test Item Value Reference Range Interpretation Comme [facility] Albumin/Globulin Ratio (test code = 1759-0) 1.2 g/dL 1.2-2.2 [facility])Alkaline phosphatase [Enzymatic activity/volume] in Serum or [id number] 20:38:00* Test Item Value Reference Range Interpretation Comme nts Alkaline Phosphatase (test c ode = 6768-6) 49 U/L 40-110 [facility])Serum or plasma aspartate aminotransferase measurement (enzymatic activity/volume)2021-05-10 20:38:00* Test Item Value Reference Range Interpretation Comme nts Aspartate Amino Transf (AST/ SGOT) (test code = 1920-8) 21 U/L 5-34 [facility])Serum or plasma alanine aminotransferase measurement without P-5'-P (enzymatic [id number] 20:38:00* Test Item Value Reference Range Interpretation Comme nts Alanine Aminotransferase (AL T/SGPT) (test code = 1744-2) 24 U/L 8-55 [facility])Serum or plasma thyrotropin measurement by detection limit <= 0.005 miu/l (units/[id number] 20:38:00* Test Item Value Reference Range Interpretation Comme nts TSH 3rd Generation (test cod e = 95251-1) 0.5968 uIU/mL 0.35-4.94 [facility])Serum or plasma acetaminophen measurement (mass/volume)2021-05-10 20:38:00* Test Item Value Reference Range Interpretation Comme nts Acetaminophen Level (test code = 3298-7) Less than 6.0 mcg/mL 10.0-30.0 [facility])Serum or plasma ethanol measurement (mass/volume)2021-05-10 20:38:00* Test Item Value Reference Range Interpretation Comme nts Plasma Alcohol (test code = 5643-2) Less than 10 mg/dL Less than 10 [facility])Serum or plasma salicylates measurement (mass/volume)2021-05-10 20:38:00* Test Item Value Reference Range Interpretation Comme nts Salicylates Level (test code = 4024-6) Less than 8.0 mg/dL 15.0-30.0 [facility])Leukocytes [#/volume] in Blood by Automated [id number] 20:38:00* Test Item Value Reference Range Interpretation Comme nts White Blood Count (test code = 6690-2) 8.4 thou/uL 4.8-10.8 [facility])Blood erythrocytes automated count (number/volume)2021-05-10 20:38:00* Test Item Value Reference Range Interpretation Comme nts Red Blood Count (test code = 789-8) 4.81 mill/uL 4.20-5.40 [facility])Blood hemoglobin measurement (mass/volume) 2021-05-10 20:38:00* Test Item Value Reference Range Interpretation Comme nts Hemoglobin (test code = 718-7) 12.5 g/dL 12.0-16.0 [facility])Automated erythrocyte mean corpuscular volume 2021-05-10 20:38:00* Test Item Value Reference Range Interpretation Comme nts Mean Corpuscular Volume (paresh t code = 787-2) 82.2 fL 78.0-98.0 [facility])Automated erythrocyte mean corpuscular hemoglobin (mass per erythrocyte)2021-05-10 20:38:00* Test Item Value Reference Range Interpretation Comme [facility] Mean Corpuscular Hemoglobin (test code = 785-6) 26.1 pg 27.0-31.0 [facility])Automated erythrocyte mean corpuscular hemoglobin concentration measurement (mass/[id number] 20:38:00* Test Item Value Reference Range Interpretation Comme nts Mean Corpuscular Hemoglobin Concent (test code = 786-4) 31.8 g/dL 32.0-36.0 [facility])Automated erythrocyte distribution width ratio 2021-05-10 20:38:00* Test Item Value Reference Range Interpretation Comme [facility] Red Cell Distribution Width (test code = 788-0) 14.8 % 11.5-14.5 [facility])Automated blood platelet count (count/volume) 2021-05-10 20:38:00* Test Item Value Reference Range Interpretation Comme nts Platelet Count (test code = 777-3) 263 thou/uL 130-400 [facility]Automated blood platelet mean [id number] 20:38:00* Test Item Value Reference Range Interpretation Comme nts Mean Platelet Volume (test c ode = 68448-0) 8.5 fL 7.4-10.4 [facility]Automated blood neutrophils/100 leukocytes 2021-05-10 20:38:00* Test Item Value Reference Range Interpretation Comme nts Neutrophils % (test code = 770-8) 56.8 % 42.0-75.0 [facility])Lymphocytes/100 leukocytes in Blood by Automated [id number] 20:38:00* Test Item Value Reference Range Interpretation Comme nts Lymphocytes % (test code = 736-9) 34.8 % 21.0-51.0 [facility])Automated blood monocytes/100 leukocytes 2021-05-10 20:38:00* Test Item Value Reference Range Interpretation Comme nts Monocytes % (test code = 5905-5) 6.3 % 0.0-10.0 [facility]Automated blood eosinophils/100 leukocytes 2021-05-10 20:38:00* Test Item Value Reference Range Interpretation Comme nts Eosinophils % (test code = 713-8) 1.2 % 0.0-10.0 [facility]Automated blood basophils/100 leukocytes 2021-05-10 20:38:00* Test Item Value Reference Range Interpretation Comme nts Basophils % (test code = 706-2) 0.8 % 0.0-1.0 [facility])Blood neutrophils automated count (number/volume)2021-05-10 20:38:00* Test Item Value Reference Range Interpretation Comme nts Neutrophils # (test code = 751-8) 4.8 thou/uL 1.40-6.50 [facility])Lymphocytes [#/volume] in Blood by Automated [id number] 20:38:00* Test Item Value Reference Range Interpretation Comme nts Lymphocytes # (test code = 731-0) 2.9 thou/uL 1.20-3.40 [facility])Blood monocytes automated count (number/volume)2021-05-10 20:38:00* Test Item Value Reference Range Interpretation Comme nts Monocytes # (test code = 742-7) 0.5 thou/uL 0.11-0.59 [facility])Blood eosinophils automated count (count/volume)2021-05-10 20:38:00* Test Item Value Reference Range Interpretation Comme nts Eosinophils # (test code = 711-2) 0.1 thou/uL 0.0-0.7 [facility])Automated blood basophil count (count/volume) 2021-05-10 20:38:00* Test Item Value Reference Range Interpretation Comme nts Basophils # (test code = 704-7) 0.1 thou/uL 0.0-0.2 [facility])Serum or plasma sodium measurement (moles/volume)2021-05-10 20:38:00* Test Item Value Reference Range Interpretation Comme [facility] Sodium Level (test code = 2951-2) 137 mmol/L 136-145 [facility])Serum or plasma potassium measurement (moles/volume)2021-05-10 20:38:00* Test Item Value Reference Range Interpretation Comme [facility] Potassium Level (test code = 2823-3) 4.3 mmol/L 3.5-5.1 [facility])Serum or plasma chloride measurement (moles/volume)2021-05-10 20:38:00* Test Item Value Reference Range Interpretation Comme [facility] Chloride Level (test code = 2075-0) 103 mmol/L 98-107 [facility])Serum or plasma carbon dioxide, total measurement (moles/volume)2021-05-10 20:38:00* Test Item Value Reference Range Interpretation Comme nts Carbon Dioxide Level (test c ode = 2028-9) 26 mmol/L 22-29 [facility])Serum or plasma anion [id number] 20:38:00* Test Item Value Reference Range Interpretation Comme [facility] Anion Gap (test code = 59316-8) 12 mmol/L 10-20 [facility])Serum or plasma urea nitrogen measurement (mass/volume)2021-05-10 20:38:00* Test Item Value Reference Range Interpretation Comme [facility] Blood Urea Nitrogen (test co de = 3094-0) 7 mg/dL 7.0-18.7 [facility])Serum or plasma creatinine measurement (mass/volume)2021-05-10 20:38:00* Test Item Value Reference Range Interpretation Comme [facility] Creatinine (test code = 2160-0) 0.70 mg/dL 0.6-1.1 [facility])Glucose [Mass/volume] in Serum or Plasma 2021-05-10 20:38:00* Test Item Value Reference Range Interpretation Comme [facility] Glucose Level (test code = 2345-7) 92 mg/dL 70-105 [facility]Serum or plasma calcium measurement (mass/volume)2021-05-10 20:38:00* Test Item Value Reference Range Interpretation Comme [facility] Calcium Level (test code = 58926-9) 9.5 mg/dL 7.8-10.44 [facility])Serum or plasma total bilirubin measurement (mass/volume)2021-05-10 20:38:00* Test Item Value Reference Range Interpretation Comme [facility] Total Bilirubin (test code = 1975-2) 0.2 mg/dL 0.2-1.2 [facility])HCG ur [id number] 20:35:00* Test Item Value Reference Range Interpretation Comme [facility] Urine Test (test c ode = 2106-3) Negative Negative [facility])Specific gravity of Urine by Refractometry [id number] 20:35:00* Test Item Value Reference Range Interpretation Comme nts Urine Specific [place] (test code = 15265-7) 1.016 1.002-1.036 [facility]Screening urine cannabinoids detection using 50 ng/mL [id number] 20:35:00* Test Item Value Reference Range Interpretation Comme [facility] Urine Cannabinoids Screen (t est code = 60249-4) Detected NotDetected [facility]Urine phencyclidine detection by screening method >25 ng/tr1893-02-42 20:35:00* Test Item Value Reference Range Interpretation Comme [facility] Urine Phencyclidine Screen ( test code = 21364-4) Not Detected NotDetected [facility])Urine cocaine detection by screening method 2021-05-10 20:35:00* Test Item Value Reference Range Interpretation Comme [facility] Urine Cocaine Metabolite Scr een (test code = 05768-8) Not Detected NotDetected [facility])Urine methamphetamine detection by screening [id number] 20:35:00* Test Item Value Reference Range Interpretation Comme [facility] Urine Methamphetamines Scree n (test code = 17935-4) Not Detected NotDetected [facility]Urine opiates detection by screening method 2021-05-10 20:35:00* Test Item Value Reference Range Interpretation Comme [facility] Urine Opiates Screen (test c ode = 89268-4) Not Detected NotDetected [facility]Amphetamines [Presence] in Urine by Screen method >500 ng/pS5714-02-79 20:35:00* Test Item Value Reference Range Interpretation Comme [facility] Urine Amphetamines Screen (t est code = 91371-2) Not Detected NotDetected [facility]Urine benzodiazepines detection by screening qkpeyp7586-06-78 20:35:00* Test Item Value Reference Range Interpretation Comme [facility] Urine Benzodiazepines Screen (test code = 30072-0) Not Detected NotDetected [facility]Screening urine tricyclic antidepressants lajrrwhlb8576-11-65 20:35:00* Test Item Value Reference Range Interpretation Comme nts Ur Tricyclic Antidepressants Screen (test code = 36802-6) Not Detected NotDetected [facility] ([place])Urine methadone detection by screening method 2021-05-10 20:35:00* Test Item Value Reference Range Interpretation Comme [facility] Urine Methadone Screen (test code = 58859-8) Not Detected NotDetected [facility] ([place])Barbiturates [Presence] in Urine by Screen method >200 ng/[id number] 20:35:00* Test Item Value Reference Range Interpretation Comme [facility] Urine Barbiturates Screen (t est code = 18622-9) Not Detected NotDetected [facility] ([place])Urine oxycodone screening [id number] 20:35:00* Test Item Value Reference Range Interpretation Comme [facility] Urine Oxycodone Screen (test code = 30661-3) Not Detected NotDetected [facility] ([place])Propoxyphene + Norpropoxyphene [Presence] in Urine by Screen [id number] 20:35:00* Test Item Value Reference Range Interpretation Comme [facility] Urine Propoxyphene Screen (t est code = 65573-7) Not Detected NotDetected [facility] ([place])Do Not [id number] 20:35:00* Test Item Value Reference Range Interpretation Comme [facility] Drug Screen Comment (test code = LOINC) [facility] ([place])Color of Urine by [id number] 20:35:00* Test Item Value Reference Range Interpretation Comme [facility] Urine Color (test code = 21354-8) Light-Yellow Yellow [facility] ([place])Urine clarity by refractometry automated 2021-05-10 20:35:00* Test Item Value Reference Range Interpretation Comme [facility] Urine Clarity (test code = 53525-7) Clear Clear [facility] ([place])Urine pH measurement by automated test strip 2021-05-10 20:35:00* Test Item Value Reference Range Interpretation Comme [facility] Urine pH (test code = 87568-2) 7.5 5.0-9.0 [facility] ([place])Urine leukocyte esterase detection by automated test [id number] 20:35:00* Test Item Value Reference Range Interpretation Comme nts Urine Leukocyte Esterase (test code = 09791-6) Negative Mariajose/uL Negative [facility] ([place])Nitrite [Presence] in Urine by Test strip 2021-05-10 20:35:00* Test Item Value Reference Range Interpretation Comme nts Urine Nitrite (test code = 5802-4) Negative Negative [facility] ([place])Urine protein measurement by automated test strip (mass/volume)2021-05-10 20:35:00* Test Item Value Reference Range Interpretation Comme nts Urine Protein (test code = 58952-5) Negative mg/dL Neg-Trace [facility] ([place])Glucose [Moles/volume] in Urine by Test strip 2021-05-10 20:35:00* Test Item Value Reference Range Interpretation Comme nts Urine Glucose (UA) (test cod e = 07648-5) Normal mg/dL Negative [facility] ([place])Urine ketones measurement by automated test strip (mass/volume)2021-05-10 20:35:00* Test Item Value Reference Range Interpretation Comme nts Urine Ketones (test code = 12373-1) Negative mg/dL Negative [facility] ([place]Urine urobilinogen measurement (units/volume) by test [id number] 20:35:00* Test Item Value Reference Range Interpretation Comme nts Urine Urobilinogen (test cod e = 07866-0) Normal mg/dL Less than 2 [facility] ([place]Urine total bilirubin detection by automated test [id number] 20:35:00* Test Item Value Reference Range Interpretation Comme nts Urine Bilirubin (test code = 20399-0) Negative Negative [facility] ([place]Urine hemoglobin detection by automated test [id number] 20:35:00* Test Item Value Reference Range Interpretation Comme nts Urine Blood (test code = 06806-5) Negative Negative [facility] ([place])XR Abdomen 1 View/[facility]UB [facility]: [facility] : 1995 [facility] Name: DENISE MONTERO [employer] Phys: [place] [id number] : 1995 Age: 26 SEX:F [phone] Exam Date: 05/10/21 Status: REG ERAcct: [id number] Loc: ERS Pt Unit #: [id number] Report #: [id number] CC: Constance Wolff PA-C [facility] REPORT Order # Category/Exam [id number] RAD/XR Abdomen 1 View/KUB ([id number]): . Results EXAM: Single view of the abdomen HISTORY: Swallowed a migdalia; abdominal pain COMPARISON: None FINDINGS: Single view of the abdomen shows a nonspecific, nonobstructive bowel gas pattern. No radiopaqueforeign body is seen in the abdomen. No suspicious calcifications are seen. The bones are unremarkable. IMPRESSION: No radiopaque foreign body identified in the abdomen. Reported By: Eladio Marin MD Electronically Signed Date/Time: 05/10/211207 Technologist: RASHAWN Dictated Date/Time: 05/10/21 1207 Transcribed Date/Time: Notes Date/Time Note [facility]
--- NOTE | 2024-07-15 17:07 | EDPHYS ---
Physician Documentation [facility] Name: Santa Guerin Age: 29 yrs Sex: Female : 1995 Arrival Date: 07/15/2024 Time: 16:27 Bed 7 Private MD: ED Physician Simin Wynn HPI: 07/15 17:04 This 29 yrs old Female presents to ER via Ambulatory with complaints of Urinary Problem.sp3 17:04 29-year-old female with no significant past medical history who is first trimester sp3 and has urine culture that is multidrug-resistant presents to the ED sent by her [employer] doctor. Patient has mild dysuria. No other symptoms and no vaginal bleeding or vaginal discharge noted. ROS otherwise negative.. Historical: - Allergies: 16:48 No Known Allergies; cm10 - Home Meds: 16:48 None [Active]; cm10 - PMHx: 16:48 None; cm10 - PSHx: 16:48 None; cm10 - Immunization history:: Adult Immunizations up to date. - Infectious Disease History:: Denies. - Social history:: Smoking status: Patient denies any tobacco usage or history of. ROS: 17:05 Constitutional: Negative for fever, chills, and weight loss, Eyes: Negative for injury, sp3 pain, redness, and discharge, Cardiovascular: Negative for chest pain, palpitations, and edema, Respiratory: Negative for shortness of breath, cough, wheezing, and pleuritic chest pain, 17:05 All other systems are negative, Exam: 17:05 Constitutional: This is a well developed, well nourished patient who is awake, alert, sp3 and in no acute distress. Abdomen/GI: Soft, non-tender, with normal bowel sounds. No distension or tympany. No guarding or rebound. No evidence of tenderness throughout. Back: No spinal tenderness. No costovertebral tenderness. Full range of motion. Vital Signs: 16:46 BP 112 / 79; Pulse 61; Resp 16; Temp 98.4; Pulse Ox 100% on R/A; Weight 63.5 kg; Height cm10 5 ft. 1 in. ; Pain 5/10; 16:46 Body Mass Index 26.45 (63.50 kg, 154.94 cm) cm10 16:46 Pain Scale: Adult cm10 MDM: 16:54 Medical Screening Exam initiated sp3 17:05 Data reviewed: vital signs. ED course: I explained to the patient that we will likely sp3 have to transfer her due to her to [facility] after treatment is initiated. Patient states that she would rather just drive herself there before we start treatment to avoid the transfer. I told her that we are happy to take care of her if she changes her mind and help her with the transfer. We will be discharging her home as an informed discharge at this time. She states that she will go straight to [facility].. Administered Medications: No medications were administered Disposition Summary: 07/15/24 17:06 Discharge Ordered Notes: Location: Home sp3 Condition: Stable sp3 Diagnosis - Multidrug-resistant UTI, informed discharge with patient driving to [facility] immediatelysp3 Followup: sp3 - With: Private Physician - When: Upon discharge from the Emergency Department - Reason: Continuance of care Forms: - Medication Reconciliation Form sp3 - Antibiotic Education sp3 - Prescription Opioid Use sp3 - Patient Portal Instructions sp3 - Leadership Thank You Letter sp3 Signatures: Simin Wynn MD MD sp3 Liliya Dick RN RN cm10
--- NOTE | 2024-07-15 17:07 | ER ---
Nurse's Notes [facility] [place] Name: Santa Guerin Age: 29 yrs Sex: Female : 1995 Arrival Date: 07/15/2024 Time: 16:27 Bed 7 Private MD: Diagnosis: Multidrug-resistant UTI, informed discharge with patient driving to [facility] immediately Presentation: 07/15 16:46 Chief complaint: Patient states: seen at OB on Tuesday and urine culture came back cm10 positive for Pseudomonas Fluorescens. Pt states that she is not on ABX. Pt reports abdominal pain, and foul smelling urine. Pt is 10 weeks . Coronavirus screen: Client denies travel out of the [place] in the last 14 days. Ebola Screen: Patient denies travel to an Ebola-affected area in the 21 days before illness onset. Initial Sepsis Screen: Does the patient meet any 2 criteria? No. Patient's initial sepsis screen is negative. Does the patient have a suspected source of infection? No. Patient's initial sepsis screen is negative. Risk Assessment: Do you want to hurt yourself or someone else? Patient reports no desire to harm self or others. Onset of symptoms was July 15, 2024. 16:46 Method Of Arrival: Ambulatory cm10 16:46 Acuity: LEO 3 cm10 Triage Assessment: 16:48 General: Appears in no apparent distress. comfortable, Behavior is calm, cooperative. cm10 Neuro: No deficits noted. Level of Consciousness is awake, alert, obeys commands, Oriented to person, place, time, situation, Appropriate for age. Respiratory: No deficits noted. Airway is patent Respiratory effort is even, unlabored, Respiratory pattern is regular, symmetrical. Historical: - Allergies: 16:48 No Known Allergies; cm10 - Home Meds: 16:48 None [Active]; cm10 - PMHx: 16:48 None; cm10 - PSHx: 16:48 None; cm10 - Immunization history:: Adult Immunizations up to date. - Infectious Disease History:: Denies. - Social history:: Smoking status: Patient denies any tobacco usage or history of. Screenin:23 [facility] ED Fall Risk Assessment (Adult) History of falling in the last 3 months, jb4 including since admission No falls in past 3 months (0 pts) Confusion or Disorientation No (0 pts) Intoxicated or Sedated No (0 pts) Impaired Gait No (0 pts) Mobility Assist Device Used No (0 pt) Altered Elimination No (0 pt) Score/Fall Risk Level 0 - 2 = Low Risk Oriented to surroundings, Maintained a safe environment. Abuse screen: Denies threats or abuse. Nutritional screening: No deficits noted. Tuberculosis screening: No symptoms or risk factors identified. Assessment: 17:23 Reassessment: Patient appears in no apparent distress at this time. Patient and/or jb4 family updated on plan of care and expected duration. Pain level reassessed. Patient is alert, oriented x 3, equal unlabored respirations, skin warm/dry/pink. Vital Signs: 16:46 BP 112 / 79; Pulse 61; Resp 16; Temp 98.4; Pulse Ox 100% on R/A; Weight 63.5 kg; Height cm10 5 ft. 1 in. ; Pain 5/10; 16:46 Body Mass Index 26.45 (63.50 kg, 154.94 cm) cm10 16:46 Pain Scale: Adult cm10 ED Course: 16:33 Patient arrived in ED. al6 16:40 Simin Wynn MD is Attending Physician. sp3 16:48 Triage completed. cm10 16:48 Arm band placed on right wrist. Patient placed in an exam room, on a stretcher. cm10 16:51 Edwar Duque RN is Primary Nurse. jb4 17:23 Patient has correct armband on for positive identification. Bed in low position. Call jb4 light in reach. Side rails up X 1. Provided Education on: discharge instructions.. 17:23 No provider procedures requiring assistance completed. Patient did not have IV access jb4 during this emergency room visit. Administered Medications: No medications were administered Medication: 17:23 VIS not applicable for this client. jb4 Outcome: 17:06 Discharge ordered by . sp3 17:23 Discharged to home ambulatory, jb4 17:23 Condition: stable 17:23 Discharge instructions given to patient, Instructed on discharge instructions, follow up and referral plans. Demonstrated understanding of instructions, follow-up care, 17:25 Patient left the ED. jb4 Signatures: Edwar Duque RN RN jb4 Simin Wynn MD MD sp3 Liliya Dick RN RN cm10 [facility] al6
[2024-07-15 17:35] VITALS: BP 112/79; TEMP 98.4; O2SAT 100
== END 2024-07-15 17:25 | disposition home or self-care (01) ==
LOC: ER 16:27
DX: O23.41 Unspecified infection of urinary tract in pregnancy, first trimester (principal); Z16.35 Resistance to multiple antimicrobial drugs; Z3A.10 10 weeks gestation of pregnancy
CPT/HCPCS: 99282